=== PATIENT | female | born 1940 | race Caucasian/White ===

== ENCOUNTER 2016-05-20 07:42 | Day surgery (SDC) | payer OTHER, BC ==
[2016-05-15 11:50] VITALS: BMI 26.1
[2016-05-20 07:57] LABS: BASOPHIL 1.3 % (0-2.0); EOSINOPHIL 2.9 % (0-4.5); MCH 28.6 pg (25.7-33.7); MCHC 33.8 g/dl (32.0-36.0); MEAN CELL VOLUME 84.4 fl (80-96); MEAN PLT VOLUME 7.5 fl (7.5-11.1); NEUTROPHILS 54.9 % (42.8-82.8); PLATELET COUNT 287 K/MM3 (134-434); RDW 14.2 % (11.6-15.6); WHITE BLOOD COUNT 5.7 K/mm3 (4.0-10.0)
[2016-05-20 08:22] LABS: INR 1.05 (0.82-1.09); PROTHROMBIN TIME (PATIENT) 11.6 SEC (9.98-11.88)
[2016-05-20 08:33] VITALS: TEMP 97.8
[2016-05-20 13:08] VITALS: BP 125/70; PULSE 80
--- NOTE | 2016-05-27 14:58 | PATH ---
Surgical Pathology Report Patient Name: ELIN WEI Med. Rec. #: [id number] /Age/Gender: 1940 (Age: 75) / F Account: [id number] Location: RADIOLOGY Taken: 05/20/2016 Received: 05/20/2016 Reported: 05/27/2016 Physicians: Pascual Christensen Specimen(s) Received MESENTERIC MASS CORE BX Clinical History 75 year old female with history of breast cancer now with necrotic mesenteric mass, colonoscopy?? 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 Comment: Immunohistochemical stains performed and interpreted at show the following: The tumor cells are positive for Ae1/Ae3 keratin, Chromogranin and BerEP4/LIZBET immunostains; ER shows focal reactivity; CK7, CK20, TTF1 and VA are negative. Additional immunohistochemical stains performed at the [place], [place] (ET17-9) show the following: the tumor cells are positive for Synaptophysin, CDX2, and CDH17 immunostains; focally weakly positive for SATB2 and are negative for JERRY-3, PAX-8, GCDFP15, mammaglobin, Her2 and CD56 immunostains. Ki67 immunostain demonstrates predominantly necrotic material with very few viable tumor cells, which limites the interpretation. The morphologic findings and the immunoprofile are most consistent with high-grade neuroendocrine carcinoma with extensive necrosis. CDX2 and CDH17 positivity favor GI origin of this neoplasm. Clinical end imaging correlations are suggested. The case was preliminary discussed with Dr. Mccray on . Electronically Signed Ranjit Brandt M.D. Gross Description Received in formalin, labeled "abdominal lesion biopsy" are 3 zuniga, cylindrical portions of soft tissue ranging from 0.4-1.1 cm in length and averaging 0.1 cm in diameter. The specimens are submitted in toto in one cassette. 05/20/201605/20/2016
== END 2016-05-20 13:05 | disposition home or self-care (01) ==
LOC: JRADIR 07:42
PROVIDERS: ATTEND Internal Medicine
PROC: BW2GY0Z Computerized Tomography (CT Scan) of Pelvic Region using Other Contrast, Unenhanced and Enhanced (ICD-10-PCS; principal; 2016-05-20)
PROC: 0DBV3ZX Excision of Mesentery, Percutaneous Approach, Diagnostic (ICD-10-PCS; 2016-05-20)
DX: D48.4 Neoplasm of uncertain behavior of peritoneum (principal); Z85.3 Personal history of malignant neoplasm of breast
CPT/HCPCS: 36415; 49180; 76098-TC; 77012-TC; 85025; 85610; 87899; 88305-TC; 88341-TC; 88342-TC